=== PATIENT | female | born 1925 | race Caucasian/White ===

== ENCOUNTER 2016-06-07 10:00 | Inpatient (IN) | payer MEDICARE, BC ==
[~2016-06-07] VITALS: Ht 157.5 cm; Wt 53.1 kg
--- NOTE | 2016-06-07 10:00 | NUR ---
bib from [facility] due to low bs- bs upon arrival is 35. Patient is awake and alert. Sating 89 % on room air. Skin is warm to touch and non diaphoretic. Afebrile. Gowned pt and placed on tele monitor. Iv inserted to rac 20. MD Draper at bedside.
[2016-06-07] MEDS ORDERED: DEXTROSE 50%-WATER 50 ML DISP.SYRIN ONE ×2 (10:03→16:52)
[2016-06-07] MEDS ORDERED: DEXTROSE 50%-WATER 50 ML DISP.SYRIN IVP ONE (10:30)
[2016-06-07] MEDS ORDERED: IPRA0.2S49 NEB ×2 (10:42)
[2016-06-07] MEDS ORDERED: DOCU-25 PO (10:42)
[2016-06-07] MEDS ORDERED: MIRT7.5T10 PO (10:42)
[2016-06-07] MEDS ORDERED: DILT120C2 PO (10:42)
[2016-06-07] MEDS ORDERED: ALLO100T PO (10:42)
[2016-06-07] MEDS ORDERED: DIGO125T PO (10:42)
[2016-06-07] MEDS ORDERED: MEGE400O PO (10:42)
[2016-06-07] MEDS ORDERED: LIOT5TAB8 PO (10:42)
[2016-06-07] MEDS ORDERED: LEVO75TA7 PO (10:42)
[2016-06-07] MEDS ORDERED: PRED10TA PO (10:42)
[2016-06-07] MEDS ORDERED: FLUT1DIS INH (10:42)
[2016-06-07] MEDS ORDERED: SACC250C6 PO (10:42)
[2016-06-07] MEDS ORDERED: METF500T4 PO (10:42)
[2016-06-07] MEDS ORDERED: INSU3INS6 SQ (10:42)
[2016-06-07] MEDS ORDERED: SENN8.6T6 PO (10:42)
[2016-06-07] MEDS ORDERED: EPOE200011 SQ (10:42)
[2016-06-07] MEDS ORDERED: ATOR10TA PO (10:42)
[2016-06-07] MEDS ORDERED: ALBU1.257 NEB (10:42)
[2016-06-07] MEDS ORDERED: POLY119P2 PO (10:42)
[2016-06-07] MEDS ORDERED: CLON0.1T PO (10:42)
[2016-06-07] MEDS ORDERED: INSU100I14 SQ (10:42)
[2016-06-07] MEDS ORDERED: LOSA50TA21 PO (10:42)
[2016-06-07] MEDS ORDERED: TIOT18CA3 INH (10:42)
[2016-06-07] MEDS ORDERED: METO-302 PO (10:42)
[2016-06-07 10:45] LABS: BASOPHILS # (AUTO) 0.1 /CMM (0.0-0.2); BASOPHILS % (AUTO) 0.4 % (0.0-2.0); EOSINOPHILS # (AUTO) 0.1 /CMM (0.0-0.7); EOSINOPHILS % (AUTO) 0.4 % (0.0-6.0); HEMATOCRIT 34 % (33-45); HEMOGLOBIN 11.3 g/dL (11.5-14.8); LYMPHOCYTES % (AUTO) 12.3 % (20.0-44.0); MEAN CORPUSCULAR HEMOGLOBIN 33 PG (26.0-33.0); MEAN CORPUSCULAR HGB CONC 33 g/dl (31.0-36.0); MEAN CORPUSCULAR VOLUME 100 fL (82-100); MONOCYTES # (AUTO) 0.6 /CMM (0.1-1.30); MONOCYTES % (AUTO) 3.8 % (2.0-12.0); NEUTROPHILS # (AUTO) 13.6 /CMM (1.8-8.9); NEUTROPHILS % (AUTO) 83.1 % (43.0-81.0); PLATELET COUNT (AUTO) 322 /CMM (150-450); RDW COEFFICIENT OF VARIATION 17.6 (11.5-15.0); RED BLOOD CELL COUNT(AUTO) 3.41 MIL/uL (4.0-5.2); WHITE BLOOD COUNT (AUTO) 16.4 K/uL (4.3-11.0)
--- NOTE | 2016-06-07 10:55 | NUR ---
xray tect at bedside
[2016-06-07 10:56] LABS: CALCIUM, SERUM 8.6 mg/dL (8.5-10.1); CARBON DIOXIDE 21 mmol/L (21-32); CHLORIDE 110 mmol/L (98-107); CREATININE 1.2 mg/dL (0.6-1.3); GLUCOSE 174 mg/dL (74-106); POTASSIUM 4.6 mmol/L (3.5-5.1); SODIUM SERUM 140 mmol/L (136-145); UREA NITROGEN, BLOOD 24 mg/dL (7-18)
[2016-06-07 11:00] LABS: INR 0.99 (0.87-1.13); PROTHROMBIN TIME 10.6 SECS (9.5-12.7)
[2016-06-07 11:02] LABS: ALANINE AMINOTRANSFERASE 14 U/L (12-78); ALBUMIN 2.7 g/dL (3.4-5.0); ALKALINE PHOSPHATASE 58 U/L (46-116); ASPARTATE AMINOTRANSFERASE 13 U/L (15-37); BILIRUBIN,DIRECT 0.1 mg/dL (0.0-0.2); BILIRUBIN,TOTAL 0.3 mg/dL (0.2-1.0); TOTAL PROTEIN, SERUM 6.4 g/dL (6.4-8.2)
[2016-06-07 11:04] LABS: TROPONIN I 0.137 ng/mL (0.00-0.056)
[2016-06-07 11:19] LABS: LACTIC ACID 3.4 mmol/L (0.4-2.0)
--- NOTE | 2016-06-07 11:23 | NUR ---
urine sample sent to lab
[2016-06-07] MEDS ORDERED: CEFTRIAXONE 1GM BAG (ER ONLY) 50 ML IV ONE (11:24)
[2016-06-07] MEDS ORDERED: IV SET PRIMARY PUMP SET 1 EA INFUS.SET MC ONE ×2 (11:24→11:38)
--- NOTE | 2016-06-07 11:24 | NUR ---
spoke with dr Callaway's office and left callback number; he will call back
[2016-06-07 11:27] LABS: APPEARANCE,URINE Clear (CLEAR); BILIRUBIN,URINE Negative (NEGATIVE); BLOOD, URINE Trace-lysed Ery/uL (NEGATIVE); COLOR,URINE Yellow (YELLOW); KETONES,URINE Negative (NEGATIVE); LEUKOCYTE ESTERASE ,URINE Trace (NEGATIVE); NITRITE, URINE Negative (NEGATIVE); PH,URINE 5.5 (5.0-8.0); PROTEIN,URINE 30 mg/dl (NEGATIVE); UROBILINOGEN,URINE 0.2 EU/dL (0.2)
[2016-06-07 11:29] LABS: UGLUCOSE 100 MG/DL mg/dL (NEGATIVE)
[2016-06-07] MEDS ORDERED: IV NS 0.9% 1,000 ML BAG IV ONE (11:30)
[2016-06-07] MEDS ORDERED: CEFTRIAXONE 1GM BAG (ER ONLY) 1 GM/50 ML PIGGYBACK IV ONE (11:30)
[2016-06-07 11:33] LABS: RBC,URINE 0-2 /HPF (0-2)
[2016-06-07 11:34] LABS: ADD URINE CULTURE NO; BACTERIA,URINE 1+ /HPF (None Seen)
[2016-06-07 11:35] LABS: SQUAMOUS EPITHELIAL CELL,UR Rare /HPF (None Seen)
[2016-06-07] MEDS ORDERED: IV NS 0.9% 2,000 ML ONE (11:37)
[2016-06-07] MEDS ORDERED: SECONDARY IV SET 1 EA INFUS.SET MC ONE (11:38)
--- NOTE | 2016-06-07 11:44 | NUR ---
PAGED DR CHOPRA.
[2016-06-07] MEDS ORDERED: AZITHROMYCIN 500 MG in IV D5W 250 ML IV ONE (12:00)
--- NOTE | 2016-06-07 12:43 | NUR ---
PATIENT TRASNPORTED TO TEEL1. VSS
--- NOTE | 2016-06-07 12:50 | NUR ---
RN NOTES ADMITTED A 89Y/O F FROM ER WITH DX OF PNA. TRANSPORTED VIA STRECHER ACCOMPANIED BY REGULATORY AFFAIRS ANALYST AND RN. DAUGHTER AT BEDSIDE. PT IS AWAKE ALERT ORIENTED TO NAME AND IMMEDIATE SURROUNDINGS WITH FORGETFULNESS. VS TAKEN AND RECORDED. TELE BOX ATTACHED NOTED NSR, BODY CHECK DONE NOTED MULTIPLE SKIN ISSUES. PT HAS MULTIPLE DISCOLORATION AND SKIN TEAR ALL OVER HER BODY. PICTURES TAKEN AND FILED. PT VERY SENSITIVE TO TACTILE STIMULI. BINDERY MANAGER WILL BE CONSULTED. ORIENTED PT TO UNIT AND CALL LIGHT USE, SAFETY MAINTAINED. CALL LIGHT WITHIN REACH, WILL CONT TO MONITOR
[2016-06-07 13:00] VITALS: BP 145/86
[2016-06-07] MEDS ORDERED: IPRATROPIUM NEB FS 0.5 MG/2.5 ML AMPUL.NEB NEB PRN (13:00)
[2016-06-07] MEDS ORDERED: DOCUSATE SODIUM 100 MG CAPSULE PO PRN (13:00)
[2016-06-07] MEDS ORDERED: TIOTROPIUM BROMIDE 6 CAP/BOX CAP.W.DEV IH SCH (13:00)
--- NOTE | 2016-06-07 13:05 | NUR ---
RN NOTES DR CHOPRA AT BESIDE, PT WAS SEEN AND EVALUATED. SPOKE WITH DAUGHTER REGARDING PLAN OF CARE
[2016-06-07] MEDS ORDERED: HYDROCODONE/APAP 5/325MG 1 EACH TABLET PO PRN (13:30)
[2016-06-07] MEDS ORDERED: Z GUARD REMEDY 2 OZ OINT TP PRN (13:30)
[2016-06-07] MEDS ORDERED: POLYETHYLENE GLYCOL 3350 17 GM POWD.PACK PO PRN (13:30)
[2016-06-07] MEDS ORDERED: ACETAMINOPHEN 325 MG TABLET PO PRN (13:30)
[2016-06-07] MEDS ORDERED: ONDANSETRON HCL/PF 4 MG/2 ML VIAL IVP PRN (13:30)
[2016-06-07] MEDS ORDERED: MAG HYDROX/AL HYDROX/SIMETH 30 ML UDC PO PRN (13:30)
[2016-06-07] MEDS: ALLOPURINOL 100 MG TABLET PO SCH (15:15)
[2016-06-07] MEDS: IV NS 0.9% 1,000 ML IV PRN (15:16)
[2016-06-07] MEDS: IPRATROPIUM NEB FS 0.5 MG/2.5 ML AMPUL.NEB NEB SCH ×2 (15:49→17:00)
[2016-06-07] MEDS: ALBUTEROL HALF STRENGTH 1.25 MG/3 ML VIAL.NEB NEB SCH ×2 (15:49→17:00)
[2016-06-07 16:00] VITALS: BP 142/108
--- NOTE | 2016-06-07 16:03 | NUR ---
RN NOTES PT AFIB UNCONTROLLED HR 139 BP 140/108 DENIES PAIN. LABOR BREATHING, ON 3L NC 89% O2SATS. CALL DR CHOPRA AND NOTIFIED OF PTS CONDITION ALL LABS WERE REPORTED, EKG DONE, MD INFORMED OF RESULTS. WILL F/U WITH PTS HEART MEDICATIONS FROM PHARMACY, SPOKE WITH
[2016-06-07] MEDS: DILTIAZEM HCL CD 120 MG PO SCH (16:05)
[2016-06-07] MEDS: DIGOXIN 0.125 MG TABLET PO SCH (16:16)
[2016-06-07] MEDS: LOSARTAN POTASSIUM 50 MG TABLET PO SCH (16:19)
[2016-06-07] MEDS: METOPROLOL SUCCINATE 25 MG TAB.SR.24H PO SCH (16:20)
[2016-06-07] MEDS: CLONIDINE HCL 0.1 MG TABLET PO PRN ×2 (16:20→16:21)
[2016-06-07] MEDS ORDERED: METOPROLOL SUCCINATE 25 MG TAB.SR.24H PO ONE (16:30)
[2016-06-07] MEDS ORDERED: LOSARTAN POTASSIUM 50 MG TABLET PO ONE (16:30)
[2016-06-07] MEDS ORDERED: predniSONE 10 MG TABLET PO ONE (16:30)
[2016-06-07] MEDS: LACTOBACILLUS RHAMNOSUS GG 1 EACH CAP.SPRINK PO SCH (16:39)
[2016-06-07] MEDS: PANTOPRAZOLE 40 MG TABLET.DR PO SCH (16:46)
[2016-06-07] MEDS: FLUTICASONE/SALMETEROL DISKUS IH SCH (17:00)
[2016-06-07] MEDS ORDERED: SENNOSIDES 8.6 MG TABLET PO SCH (17:00)
[2016-06-07] MEDS ORDERED: METFORMIN 500 MG TABLET PO SCH (17:00)
[2016-06-07] MEDS: MEGESTROL ACETATE 40 MG TABLET PO SCH (17:03)
--- NOTE | 2016-06-07 17:11 | NUR ---
RN NOTES PT SLURRED SPEECH, PALE, MILD LETHARGY NOTED. BS LOW ON METER. 50% DEXTROSE 25G GIVEN IV. CHARGE NURSE FU TO NOTIFIED MD. PT A/O X4 , BS 180 POST ADMINISTRATION. WILL CONTINUE TO MONITOR.
[2016-06-07] MEDS ORDERED: DEXTROSE 50%-WATER 50 ML DISP.SYRIN IV PRN (17:30)
[2016-06-07] MEDS ORDERED: INSULIN REGULAR, HUMAN 100 UNIT/ML 3 ML VIAL SQ PRN (17:30)
[2016-06-07] MEDS: BLOOD SUGAR DIAGNOSTIC 1 EACH STRIP IN SCH ×2 (18:38→21:19)
[2016-06-07] MEDS ORDERED: LIOTHYRONINE SODIUM (5 MCG/TA 5 MCG TABLET PO SCH (19:18)
[2016-06-07 20:00] VITALS: BP 140/98
--- NOTE | 2016-06-07 21:05 | NUR ---
RN NOTE RECEIVED REPORT. PT AAOX1-2, PERIODS OF FORGETFULNESS. ON NC @ 4L. NO S/S OF RESPIRATORY DISTRESS. DENIES SOB/DIZZINESS/CP. TELE SHOWS UNCONTROLLED AFIB IN 100'S - MD AWARE. LAND HAND IV TOLERATING FLUIDS WELL. WILL MONITOR ACCUCHECK. CALL LIGHT IN REACH, SAFETY AND COMFORT MEASURE RENDERDED. WILL CONT TO MONITOR.
[2016-06-07] MEDS: MIRTAZAPINE 15 MG TABLET PO SCH (21:20)
[2016-06-07] MEDS: ATORVASTATIN 10 MG TABLET PO SCH (21:20)
[2016-06-07 22:00] VITALS: BP 140/98
[2016-06-07] MEDS ORDERED: ZOLPIDEM TARTRATE 5 MG TABLET PO PRN (22:00)
[2016-06-07] MEDS ORDERED: MAGNESIUM HYDROXIDE 30 ML UDC PO PRN (22:00)
[2016-06-07] MEDS ORDERED: INSULIN DETEMIR 100 UNIT/ML CARTRIDGE SQ SCH (22:00)
[2016-06-08] VITALS: BP 142/78
--- NOTE | 2016-06-08 02:30 | NUR ---
RN NOTE MD MADE AWARE OF PT PULSE RATE - AFIB 110-150'S. BP 148/87. NO C/O CP/DIZZINESS, BUT SOB NOTED. ONE TIME LOPRESSOR 50 MG PO WILL BE GIVEN. WILL CONT TO MONITOR.
[2016-06-08] MEDS ORDERED: METOPROLOL TARTRATE 50 MG TABLET PO STA (02:35)
[2016-06-08] MEDS ORDERED: BENZONATATE 100 MG CAPSULE PO ONE (02:38)
[2016-06-08] MEDS ORDERED: METOPROLOL TARTRATE 50 MG TABLET ONE (02:38)
[2016-06-08] MEDS ORDERED: BENZONATATE 100 MG CAPSULE PO PRN (03:00)
[2016-06-08] MEDS: IV NS 0.9% 1,000 ML IV PRN (03:47)
[2016-06-08 04:00] VITALS: BP 139/64
--- NOTE | 2016-06-08 04:00 | NUR ---
RN NOTE PT AAOX2, WITH PERIODS OF CONFUSION. TELE READS AFIB 90-100, PRN METOPROLOL GIVEN AT 0230 EFFECTIVE. PT DENIES CP/DIZZINESS/SOB, ON NC @ 3L SATTING WELL. VSS, NO DISTRESS AT THIS TIME. CALL LIGHT IN REACH, SAFETY AND COMFORT MEASURES RENDERED. WILL F/U WITH DAY SHIFT FOR ECHO.
[2016-06-08] MEDS: BLOOD SUGAR DIAGNOSTIC 1 EACH STRIP IN SCH ×4 (06:37→22:01)
[2016-06-08 07:27] LABS: BASOPHILS % (AUTO) 0.2 % (0.0-2.0); EOSINOPHILS % (AUTO) 0.1 % (0.0-6.0); HEMATOCRIT 28 % (33-45); HEMOGLOBIN 9.1 g/dL (11.5-14.8); LYMPHOCYTES % (AUTO) 5.3 % (20.0-44.0); MEAN CORPUSCULAR HEMOGLOBIN 32 PG (26.0-33.0); MEAN CORPUSCULAR HGB CONC 33 g/dl (31.0-36.0); MEAN CORPUSCULAR VOLUME 98 fL (82-100); MONOCYTES # (AUTO) 0.2 /CMM (0.1-1.30); MONOCYTES % (AUTO) 1.3 % (2.0-12.0); NEUTROPHILS # (AUTO) 16.9 /CMM (1.8-8.9); NEUTROPHILS % (AUTO) 93.1 % (43.0-81.0); PLATELET COUNT (AUTO) 223 /CMM (150-450); RDW COEFFICIENT OF VARIATION 18.3 (11.5-15.0); RED BLOOD CELL COUNT(AUTO) 2.82 MIL/uL (4.0-5.2); WHITE BLOOD COUNT (AUTO) 18.1 K/uL (4.3-11.0)
[2016-06-08 07:56] LABS: BILIRUBIN,TOTAL 0.2 mg/dL (0.2-1.0); CALCIUM, SERUM 7.6 mg/dL (8.5-10.1); CREATININE 0.9 mg/dL (0.6-1.3); MAGNESIUM 1.6 mg/dL (1.8-2.4); PHOSPHORUS 3.2 mg/dL (2.5-4.9); POTASSIUM 4.5 mmol/L (3.5-5.1); TOTAL PROTEIN, SERUM 5.1 g/dL (6.4-8.2)
[2016-06-08] MEDS: LEVOTHYROXINE SODIUM 75 MCG TABLET PO SCH (07:59)
[2016-06-08 08:00] VITALS: BP 103/64
[2016-06-08] MEDS: PANTOPRAZOLE 40 MG TABLET.DR PO SCH (08:00)
--- NOTE | 2016-06-08 08:19 | NUR ---
RN NOTES 0700 PT A/O X3 DENIES PAIN AT THIS TIME. ON 4L NC O2SATS 96% AFIB 90 ON MONITOR. AFEBRILE. ATTEMPS TO CLEAR SECRETION. SAFETY MEASURES IMPLEMENTED. WILL CONTINUE TO MONITOR CARE.
[2016-06-08] MEDS: ALBUTEROL HALF STRENGTH 1.25 MG/3 ML VIAL.NEB NEB SCH ×3 (08:55→17:04)
[2016-06-08] MEDS: IPRATROPIUM NEB FS 0.5 MG/2.5 ML AMPUL.NEB NEB SCH ×3 (08:55→17:04)
[2016-06-08] MEDS: Z GUARD REMEDY 2 OZ OINT TP SCH (09:00)
[2016-06-08] MEDS ORDERED: DILTIAZEM HCL CD 120 MG PO SCH (09:00)
--- NOTE | 2016-06-08 09:00 | NUR ---
SKILLED NURSING SENT MEDICATION LIST AND COPY OF POLST. PUT IN CHART. SKILLED NURSING INFORMATION: [facility], [address], . MAY SPEAK TO [facility] AND PATIENT IS LISTED UNDER NAME NILTON SOON ROOM 101-A. WILL ENDORSE TO NEXT NURSE.
--- NOTE | 2016-06-08 09:00 | NUR ---
RN AM NOTES PATIENT RECEIVED IN STABLE CONDITION, A/O X1, ASKING WHERE SHE IS AND WHERE HER DAUGHTER IS. INFORMED PATIENT THAT HER DAUGHTER VISITED YESTERDAY AND THAT SHE KNOWS SHE IS IN THE HOSPITAL. REORIENTED PATIENT TO HOSPITAL. PATIENT KEEPS STATING "I WANT TO GO HOME," BUT THEN REALIZES SHE IS IN THE HOSPITAL AND CALMS DOWN. CURRENTLY RESTING IN BED CALMLY, EATING BREAKFAST. WILL CONTINUE TO MONITOR
[2016-06-08] MEDS: LACTOBACILLUS RHAMNOSUS GG 1 EACH CAP.SPRINK PO SCH ×2 (10:13→17:23)
[2016-06-08] MEDS: MEGESTROL ACETATE 40 MG TABLET PO SCH ×2 (10:14→17:11)
[2016-06-08] MEDS: ALLOPURINOL 100 MG TABLET PO SCH (10:18)
[2016-06-08] MEDS: DILTIAZEM HCL CD 120 MG PO SCH (10:18)
[2016-06-08] MEDS: METOPROLOL SUCCINATE 25 MG TAB.SR.24H PO SCH (10:19)
[2016-06-08] MEDS: DIGOXIN 0.125 MG TABLET PO SCH (10:19)
[2016-06-08] MEDS: LOSARTAN POTASSIUM 50 MG TABLET PO SCH (10:20)
--- NOTE | 2016-06-08 11:00 | NUR ---
WOUND CARE CONSULT: PATIENT SEEN AND SKIN ASSESSMENT DONE. PATIENT ALERT, INCONTINENT, ROCÍO 13, NURSING STAFF ORDERED AMANDA ISOFLEX ALEX BED AND WILL BE PLACED WHEN AVAILABLE IN THE UNIT. SEE TODAY'S SKIN ASSESSMENT IN PCS ALONG WITH RECOMMENDATIONS DISCUSSED WITH NURSING STAFF INCLUDING MOISTURE PROTECTION AND PRESSURE PREVENTION MEASURES ORDERED. MD IN AGREEMENT WITH PLAN OF CARE. Addendum: 06/08/16 at 1103 by ESCOBAR SAINZ WNDNU Amended: Links added.
[2016-06-08] MEDS: LIOTHYRONINE SODIUM (5 MCG/TA 5 MCG TABLET PO SCH (11:43)
[2016-06-08] MEDS: SENNOSIDES 8.6 MG TABLET PO SCH ×2 (11:44→17:11)
[2016-06-08] MEDS: predniSONE 10 MG TABLET PO SCH (11:44)
[2016-06-08] MEDS: FLUTICASONE/SALMETEROL DISKUS IH SCH ×2 (11:44→17:10)
[2016-06-08] MEDS ORDERED: CEFTRIAXONE 1 G in IV D5W 50 ML IV SCH (12:00)
[2016-06-08] MEDS: HYDROGEL DRESSING 90 GM TUBE TP SCH (12:44)
[2016-06-08] MEDS: AZITHROMYCIN 500 MG in IV D5W 250 ML IV SCH (12:44)
[2016-06-08] MEDS ORDERED: SECONDARY IV SET 1 EA INFUS.SET MC ONE ×2 (12:46→14:35)
--- NOTE | 2016-06-08 12:59 | NUR ---
BLOOD SUGAR TAKEN IMMEDIATE POST PARANDIAL. NO COVERAGE NEEDED AT THIS TIME. WILL CONTINUE TO MONITOR.
--- NOTE | 2016-06-08 14:03 | NUR ---
SWALLOW EVALUATION COMPLETE, PATIENT ABLE TO TOLERATE WHOLE FOODS WITH NO PROBLEMS, MG TO BE REPLACED, WOUND CONSULT WITH LORI BERNARDCORPORATE MEETING PLANNER NURSE PENDING, RENDERED WOULD CARE THIS AM. WILL ENDORSE TO ONCOMING NURSE.
--- NOTE | 2016-06-08 14:17 | NUR ---
Social service consult requested by [place] for [facility]. Per H&P report by Dr. Chu, pt is a 89-year-old female who presented to the emergency room from assisted living facility for evaluation of altered mentation. According to patient's daughter who is at bedside found her mother very lethargic on day of admission. Patient also reports for bilateral lower extremity wounds. They have been taking care of by a complaint specialist at [facility]. Pt. is A&O x 2 with bouts of confusion. Pt. resides at [facility], an assisted living located at [address] [place] [address] . Pt. has a portable Oxygen tank and home health services. consulted with nurse case manager Michael who informed SW he spoke to pt's daughter Jerica and confirmed that pt. will return back to her assisted living at the [facility] upon discharge. Pt's daughter will transport pt. back to her facility upon discharge.
[2016-06-08] MEDS ORDERED: IV NS 0.9% 1,000 ML ONE (14:35)
[2016-06-08] MEDS: NEOMY SULF/BACITRAC ZN/POLY 15 GM TUBE TP SCH (14:45)
[2016-06-08] MEDS: Magnesium 1GM/D5W 100ML PREMIX 100 ML IV SCH (14:45)
--- NOTE | 2016-06-08 14:47 | NUR ---
STARTED NEW BAG OF NS FOR HYDRATION. SCANNED TWICE, MANUALLY ENTERED, BUT COMPUTER DOES NOT RECOGNIZE.
--- NOTE | 2016-06-08 15:08 | NUR ---
PATIENT'S PIV DISLODGED. ATTEMPTED TO REINSERT UNSUCCESSFULLY. SKIN WITH MULTIPLE BRUISES AND SKIN TEARS. WOUND CARE RENDERED, PAIN MEDS GIVEN ORDERED. OKAY FOR MIDLINE INSERTION FOR MEDS AND BLOOD DRAWS. WILL CONTINUE TO MONITOR.
[2016-06-08 16:00] VITALS: BP 98/74
--- NOTE | 2016-06-08 17:40 | NUR ---
RN NOTE LEFT ARM INFILTRATED FROM PREVIOUS IV SITE. FOLLOWED UP WITH SUPERVISOR RIDES FOR MIDLINE INSERTION STILL WAITING FOR PLACEMENT.
[2016-06-08] MEDS ORDERED: IV SET PRIMARY PUMP SET 1 EA INFUS.SET MC ONE (18:47)
[2016-06-08] MEDS: MEROPENEM 500 MG in IV NS 0.9% 50 ML IV SCH (18:47)
--- NOTE | 2016-06-08 19:02 | NUR ---
RN NOTES PT MID LINE IV CATH RT UPPER ARM DRY INTACT. ANTIBIOTICS AND MAG INFUSING ORDERED. NO CHANGE IN CONDITION. ON 3L NC. NO SOB REPOTED. BREATH SOUNDS DIMINISHED. DENIES PAIN AT THIS TIME. SAFETY MEASURES IMPLEMENTED. CALL LIGHT IN REACH. WILL ENDORSED PT CARE TO NEXT SHIFT.
[2016-06-08 20:00] VITALS: BP 108/64
--- NOTE | 2016-06-08 20:00 | NUR ---
DIRECTOR OF DIVERSITY AND INCLUSION RECEIVED PT IN BED SUPINE. A/O X 1-2, CONFUSED AND FORGETFUL. NO SOB, NO DISTRESS OR DISCOMFORT NOTED. DENIES PAIN. ON TELE A FIB UNCONTROLLED HR 100. MAG IS INFUSING AT 100 ML/HR, NO S/S OF INFILTRATION NOTED AT CARLOS MIDLINE # 20 G. PT HAS LEFT ARM EDEMA DUE TO IV INFILTRATION IN DAY SHIFT. KEPT THE ARM ELEVATED. PT HAS MULTIPLE SKIN TEAR AND BRUISES, HANDLED HER GENTLY. INCONTINENCE CARE GIVEN. Z GUARD APPLIED. REPOSITION HER FOR SKIN MANAGEMENT. SIDE RAILS UP X 2 AND CALL LIGHT WITHIN REACH. VSS. CONTINUE TO MONITOR HER.
[2016-06-08 20:56] VITALS: BP 154/89
[2016-06-08] MEDS ORDERED: MEROPENEM 500 MG in IV NS 0.9% 50 ML IV SCH (21:00)
[2016-06-08] MEDS: ATORVASTATIN 10 MG TABLET PO SCH (21:36)
[2016-06-08] MEDS: MIRTAZAPINE 15 MG TABLET PO SCH (21:37)
[2016-06-09] VITALS (8 sets, daily range): BP systolic 101–177; BP diastolic 55–86
[2016-06-09] MEDS: MEROPENEM 500 MG in IV NS 0.9% 50 ML IV SCH ×2 (04:57→16:23)
--- NOTE | 2016-06-09 05:00 | NUR ---
BI DATA MODELER PT IN BED AWAKE. BED BATH GIVEN. ALSO WOUND TX'S DONE ORDERED. IVF INFUSING WELL, NO S/S OF INFILTRATION NOTED.
[2016-06-09] MEDS: BLOOD SUGAR DIAGNOSTIC 1 EACH STRIP IN SCH ×3 (05:58→16:32)
--- NOTE | 2016-06-09 06:37 | NUR ---
DIRECTOR OF FIELD SERVICE NOTE PT IN BED ASLEEP, AROUSABLE. NO DISTRESS OR DISCOMFORT NOTED. DENIES PAIN. IVF INFUSING WELL, NO S/S OF INFILTRATION NOTED. ON TELE A FIB CONTROLLED WITH HR 80. SIDE RAILS UP X 2 AND CALL LIGHT WITHIN REACH. WILL ENDORSE TO DAY SHIFT NURSE FOR CONTINUE TO CARE.
--- NOTE | 2016-06-09 07:20 | NUR ---
SUTURE WINDER HAND INITIAL NOTES: Rec'd pt awake on bed, not in any distress, denies chest pain or any discomfort, A&O x1-2 with periods of confusion. Pt on O2 at 3lpm per NC, no SOB, saturating at 97%. On telemonitoring, atrial fib controlled/uncontrolled, HR at 106 bpm. Pt has CARLOS midline, patent, clean, dry, intact w/ NS at 100 cc/hr infusing well, no signs of infection/ infiltration noted. Call light placed within reached. Instructed to press call light if needs assistance, verbalized understanding. Will turn and reposition, offload heels as per protocol. Bed kept low and in locked position. Will continue to monitor.
--- NOTE | 2016-06-09 08:00 | NUR ---
CLOSET BUILDER NOTES: CARLOS midline checked, infiltrated, catheter out. Notified nursing finishing supervisor c/o CIRO Addison for reinsertion.
[2016-06-09] MEDS: IV NS 0.9% 1,000 ML IV PRN (08:43)
[2016-06-09] MEDS: LEVOTHYROXINE SODIUM 75 MCG TABLET PO SCH (08:47)
[2016-06-09] MEDS: predniSONE 10 MG TABLET PO SCH (08:48)
[2016-06-09] MEDS: PANTOPRAZOLE 40 MG TABLET.DR PO SCH (08:48)
[2016-06-09] MEDS: LACTOBACILLUS RHAMNOSUS GG 1 EACH CAP.SPRINK PO SCH ×2 (08:48→16:23)
[2016-06-09] MEDS: MEGESTROL ACETATE 40 MG TABLET PO SCH ×2 (08:48→16:23)
[2016-06-09] MEDS: LOSARTAN POTASSIUM 50 MG TABLET PO SCH (08:49)
[2016-06-09] MEDS: SENNOSIDES 8.6 MG TABLET PO SCH ×2 (08:49→16:23)
[2016-06-09] MEDS: METOPROLOL SUCCINATE 25 MG TAB.SR.24H PO SCH (08:49)
[2016-06-09] MEDS: ALLOPURINOL 100 MG TABLET PO SCH (08:50)
[2016-06-09] MEDS: DILTIAZEM HCL CD 120 MG PO SCH (08:50)
[2016-06-09] MEDS: DIGOXIN 0.125 MG TABLET PO SCH (08:50)
[2016-06-09] MEDS: LIOTHYRONINE SODIUM (5 MCG/TA 5 MCG TABLET PO SCH (08:50)
[2016-06-09] MEDS: NEOMY SULF/BACITRAC ZN/POLY 15 GM TUBE TP SCH (08:51)
[2016-06-09] MEDS: Z GUARD REMEDY 2 OZ OINT TP SCH (08:52)
[2016-06-09] MEDS: HYDROGEL DRESSING 90 GM TUBE TP SCH (08:52)
[2016-06-09] MEDS: ALBUTEROL HALF STRENGTH 1.25 MG/3 ML VIAL.NEB NEB SCH ×3 (09:00→17:01)
[2016-06-09] MEDS: IPRATROPIUM NEB FS 0.5 MG/2.5 ML AMPUL.NEB NEB SCH ×3 (09:00→17:01)
[2016-06-09 10:18] LABS: EOSINOPHILS % (AUTO) 0.3 % (0.0-6.0); HEMATOCRIT 29 % (33-45); HEMOGLOBIN 9.5 g/dL (11.5-14.8); LYMPHOCYTES % (AUTO) 6.9 % (20.0-44.0); MEAN CORPUSCULAR HEMOGLOBIN 33 PG (26.0-33.0); MEAN CORPUSCULAR HGB CONC 33 g/dl (31.0-36.0); MEAN CORPUSCULAR VOLUME 100 fL (82-100); MONOCYTES # (AUTO) 0.5 /CMM (0.1-1.30); MONOCYTES % (AUTO) 3.4 % (2.0-12.0); NEUTROPHILS # (AUTO) 12.9 /CMM (1.8-8.9); NEUTROPHILS % (AUTO) 89.4 % (43.0-81.0); PLATELET COUNT (AUTO) 289 /CMM (150-450); RDW COEFFICIENT OF VARIATION 18.3 (11.5-15.0); RED BLOOD CELL COUNT(AUTO) 2.89 MIL/uL (4.0-5.2); WHITE BLOOD COUNT (AUTO) 14.4 K/uL (4.3-11.0)
[2016-06-09 10:29] LABS: CALCIUM, SERUM 8.1 mg/dL (8.5-10.1); CREATININE 1.2 mg/dL (0.6-1.3); MAGNESIUM 2.2 mg/dL (1.8-2.4); POTASSIUM 4.1 mmol/L (3.5-5.1)
[2016-06-09] MEDS: FLUTICASONE/SALMETEROL DISKUS IH SCH ×2 (10:40→16:24)
[2016-06-09] MEDS: EPOETIN ALFA (20,000 UNIT) 20,000 UNIT/ML VIAL SQ SCH (11:55)
--- NOTE | 2016-06-09 12:00 | NUR ---
HUMAN RESOURCES OPERATIONS MANAGER NOTES: Followed up w/ CIRO Addison re: reinsertion of midline. Nursing lathing supervisor made aware.
--- NOTE | 2016-06-09 14:00 | NUR ---
EAR FLAP BINDER NOTES: Dr. Bishop made aware c/o CIRO Addison that pt cannot tolerate straight catheterization procedure for urine culture specimen. Pt having SOB.
--- NOTE | 2016-06-09 15:30 | NUR ---
TECH INTERN NOTES: CARLOS Midline G18 reinserted c/o Harley. Pt tolerated well the procedure.
[2016-06-09] MEDS ORDERED: SECONDARY IV SET 1 EA INFUS.SET MC ONE (15:33)
[2016-06-09] MEDS: AZITHROMYCIN 500 MG in IV D5W 250 ML IV SCH (15:34)
--- NOTE | 2016-06-09 17:00 | NUR ---
HELPER STEEL FABRICATION NOTES: Informed Dr. Bishop re: blood sugar of 323 mg/dL, with orders made and carried out. Instructed family not to give pt any outside food. Verbalized understanding.
[2016-06-09] MEDS ORDERED: DEXTROSE 50%-WATER 50 ML DISP.SYRIN IV PRN (17:30)
[2016-06-09] MEDS: BLOOD SUGAR DIAGNOSTIC 1 EACH STRIP VI SCH ×2 (17:54→21:11)
[2016-06-09] MEDS: *INSULIN REGULAR(HUMULIN R)HUM 100 UNIT/ML VIAL SQ PRN ×2 (18:39→21:05)
--- NOTE | 2016-06-09 18:39 | NUR ---
SPRINKLER INSTALLER CLOSING NOTES: No acute changes noted w/in shift. Pt not in any distress, A&O x3. Pt on O2 at 3lpm per NC, no SOB, saturating at 97%. On telemonitoring, atrial fib with HR at 96 bpm. Pt has new CARLOS midline inserted, patent, clean, dry, intact w/ NS at 100 cc/hr infusing well, no signs of infection/ infiltration noted. Call light placed within reached. Wound care done. Turned and repositioned, offloaded heels done. Bed kept low and in locked position. Will endorse to PM RN for ECHO.
--- NOTE | 2016-06-09 20:00 | NUR ---
SHEET METAL SUPERINTENDENT NOTES RECEIVED PTS ON BED AWAKE ALERT AND VERBALLY RESPONSIVE WITH PERIOD OF CONFUSION,ON TELE AFIB ON THE MONITOR , V/S STABLE AFEBRILE , ALL DUE MEDS GIVEN ORDERED ALL NEEDS ATTENDED TOO .CALL LIGHT WITH REACH ,KEPT PTS CLEAN DRY AND COMFORTABLE. WILL CONTINUE TO MONITOR PTS.
[2016-06-09] MEDS: ATORVASTATIN 10 MG TABLET PO SCH (21:06)
[2016-06-09] MEDS: MIRTAZAPINE 15 MG TABLET PO SCH (21:07)
[2016-06-10] VITALS: BP 129/63
[2016-06-10] MEDS: IV NS 0.9% 1,000 ML IV PRN ×2 (03:08→14:56)
[2016-06-10 04:00] VITALS: BP_SYST 140; BP_DIAS 97; BP_DIAS 99
[2016-06-10] MEDS: MEROPENEM 500 MG in IV NS 0.9% 50 ML IV SCH ×2 (05:34→17:11)
[2016-06-10] MEDS: BLOOD SUGAR DIAGNOSTIC 1 EACH STRIP VI SCH ×4 (06:55→21:50)
[2016-06-10] MEDS: INSULIN REGULAR, HUMAN 100 UNIT/ML 3 ML VIAL SQ PRN ×3 (06:56→18:44)
--- NOTE | 2016-06-10 07:20 | NUR ---
ETHOLOGIST INITIAL NOTES: Rec'd pt asleep on bed, easily arousable, A&Ox3, not in any distress. On O2 at 3lpm/NC, no SOB noted. On telemonitoring, A.fib w/ HR 105 bpm. Pt has CARLOS G18 midline patent and intact, no signs of infection/ infiltration noted with IVF of NS 1L x100 cc/hr infusing well. Provided comfort and safety environment. Call light placed w/in reached. Bed kept low and in locked position. Will turn, reposition and offload heels as per protocol. Will continue to monitor.
--- NOTE | 2016-06-10 07:23 | NUR ---
CARTON CATCHER NOTES PTS ON BED AWAKE ALERT AND VERBALLY RESPONSIVE ,NO SOB NO DISTRESS , NO FACIAL GRIMACES NOTED PTS ON TELE AFIB ON THE MONITOR ,BLOOD SUGAR FOR 730 AM IS 70 NO COVERAGE GIVEN PER SLIDING PER SLIDING SCALE, PTS ENDORSE TO NIKI RN DAY FOR CONTINUITY OF CARE.
[2016-06-10 07:44] LABS: EOSINOPHILS % (AUTO) 0.3 % (0.0-6.0); HEMATOCRIT 30 % (33-45); HEMOGLOBIN 9.9 g/dL (11.5-14.8); LYMPHOCYTES # (AUTO) 1.5 /CMM (0.8-4.8); LYMPHOCYTES % (AUTO) 10.5 % (20.0-44.0); MEAN CORPUSCULAR HEMOGLOBIN 31 PG (26.0-33.0); MEAN CORPUSCULAR HGB CONC 32 g/dl (31.0-36.0); MEAN CORPUSCULAR VOLUME 97 fL (82-100); MONOCYTES # (AUTO) 0.4 /CMM (0.1-1.30); NEUTROPHILS # (AUTO) 12.1 /CMM (1.8-8.9); NEUTROPHILS % (AUTO) 86.2 % (43.0-81.0); PLATELET COUNT (AUTO) 260 /CMM (150-450); RDW COEFFICIENT OF VARIATION 17.7 (11.5-15.0); RED BLOOD CELL COUNT(AUTO) 3.14 MIL/uL (4.0-5.2)
[2016-06-10 08:00] VITALS: BP 106/85
[2016-06-10 08:02] LABS: CALCIUM, SERUM 8.3 mg/dL (8.5-10.1); CREATININE 1.1 mg/dL (0.6-1.3)
[2016-06-10] MEDS: MEGESTROL ACETATE 40 MG TABLET PO SCH ×2 (08:07→17:12)
[2016-06-10] MEDS: LIOTHYRONINE SODIUM (5 MCG/TA 5 MCG TABLET PO SCH (08:07)
[2016-06-10] MEDS: predniSONE 10 MG TABLET PO SCH (08:08)
[2016-06-10] MEDS: CHOLECALCIFEROL 1,000 UNIT TABLET (VIT D3) PO SCH (08:08)
[2016-06-10] MEDS: LEVOTHYROXINE SODIUM 75 MCG TABLET PO SCH (08:08)
[2016-06-10] MEDS: METOPROLOL SUCCINATE 25 MG TAB.SR.24H PO SCH (08:08)
[2016-06-10] MEDS: PANTOPRAZOLE 40 MG TABLET.DR PO SCH (08:08)
[2016-06-10] MEDS: ALLOPURINOL 100 MG TABLET PO SCH (08:09)
[2016-06-10] MEDS: CYANOCOBALAMIN 500 MCG TABLET PO SCH (08:09)
[2016-06-10] MEDS: SENNOSIDES 8.6 MG TABLET PO SCH ×2 (08:10→17:11)
[2016-06-10] MEDS: DIGOXIN 0.125 MG TABLET PO SCH (08:10)
[2016-06-10] MEDS: LACTOBACILLUS RHAMNOSUS GG 1 EACH CAP.SPRINK PO SCH ×2 (08:10→17:11)
[2016-06-10 08:11] LABS: HOMOCYSTEINE, PLASMA 16.9 umol/L (0.0-15.0)
[2016-06-10] MEDS: Z GUARD REMEDY 2 OZ OINT TP SCH (08:11)
[2016-06-10] MEDS: FLUTICASONE/SALMETEROL DISKUS IH SCH ×2 (08:11→17:15)
[2016-06-10] MEDS: HYDROGEL DRESSING 90 GM TUBE TP SCH (08:12)
[2016-06-10] MEDS: NEOMY SULF/BACITRAC ZN/POLY 15 GM TUBE TP SCH (08:12)
[2016-06-10] MEDS: ALBUTEROL HALF STRENGTH 1.25 MG/3 ML VIAL.NEB NEB SCH ×4 (08:48→19:44)
[2016-06-10] MEDS: IPRATROPIUM NEB FS 0.5 MG/2.5 ML AMPUL.NEB NEB SCH ×4 (08:48→19:44)
[2016-06-10] MEDS: LOSARTAN POTASSIUM 50 MG TABLET PO SCH (09:06)
[2016-06-10] MEDS: DILTIAZEM HCL CD 120 MG PO SCH (09:06)
[2016-06-10] MEDS: AZITHROMYCIN 500 MG in IV D5W 250 ML IV SCH (11:42)
--- NOTE | 2016-06-10 13:00 | NUR ---
MS RN NOTES: Pt seen and examined by ERICA Marinelli.
[2016-06-10] MEDS ORDERED: LEVOFLOXACIN 750 MG /D5W 150ML 750 MG in PREMIX 1 EA IV SCH (13:30)
[2016-06-10] MEDS ORDERED: PIPERACILLIN /TAZOBACTAM 3.375 G in IV D5W 50 ML IV SCH (13:48)
[2016-06-10] MEDS: ACETYLCYSTEINE 20% SOLN 800 MG/4 ML VIAL NEB SCH ×3 (13:50→23:20)
[2016-06-10 16:00] VITALS: BP 83/55
--- NOTE | 2016-06-10 18:58 | NUR ---
MS RN CLOSING NOTES: No acute changes noted w/in shift. Pt not in any distress. On O2 at 3lpm/NC, no SOB noted. Pt has CARLOS G18 midline patent and intact, no signs of infection/ infiltration noted with IVF of NS 1L x100 cc/hr infusing well. Kept well rested & comfortable. Call light placed w/in reached. Bed kept low and in locked position. Turned, repositioned, & offloaded heels. Wound care done. Will endorse to PM RN for ECHO.
[2016-06-10 20:00] VITALS: BP 164/87
--- NOTE | 2016-06-10 20:00 | NUR ---
MS RN NOTES RECEIVED PTS ON BED AWAKE ALERT AND VERBALLY RESPONSIVE ABLE TO MAKE NEEDS KNOWN , ON O2 AT 3LITERS VIA NC SATING 97 %, NO SOB NO DISTRESS NOTED, DENIES PAIN AT THIS TIME , V/S STABLE AFEBRILE , ALL DUE MEDS GIVEN ORDERED ALL NEEDS ATTENDED TOO CALL LIGHT WITHIN REACH KEPT PTS CLEAN DRY AND COMFORTABLE TURNED AND REPOSITION Q2 HRS PER PROTOCOL ,HOB ELEVATED FOR ASPIRATION PRECAUTION.WILL CONTINUE TO MONITOR PTS.
[2016-06-10 20:31] LABS: TROPONIN I 0.133 ng/mL (0.00-0.056)
[2016-06-10] MEDS: *INSULIN REGULAR(HUMULIN R)HUM 100 UNIT/ML VIAL SQ PRN (21:53)
[2016-06-10] MEDS: MIRTAZAPINE 15 MG TABLET PO SCH (21:56)
[2016-06-10] MEDS: ATORVASTATIN 10 MG TABLET PO SCH (21:56)
--- NOTE | 2016-06-11 | NUR ---
ms rn notes pts on bed sleeping comfortably , on 3liters of o2 via nc , no sob no distress noted denies pain at this time. continue on ivf ns at 100cc/hr infusing well.
[2016-06-11] MEDS: IV NS 0.9% 1,000 ML IV PRN (01:43)
[2016-06-11 04:00] VITALS: BP 116/81
[2016-06-11] MEDS: MEROPENEM 500 MG in IV NS 0.9% 50 ML IV SCH ×2 (05:14→16:52)
[2016-06-11] MEDS: INSULIN REGULAR, HUMAN 100 UNIT/ML 3 ML VIAL SQ PRN ×2 (06:44→13:27)
[2016-06-11] MEDS: BLOOD SUGAR DIAGNOSTIC 1 EACH STRIP VI SCH ×4 (06:45→21:36)
--- NOTE | 2016-06-11 06:45 | NUR ---
MS RN NOTES PTS ON BED AWAKE ALERT AND VERBALLY RESPONSIVE , NO SOB NO DISTRESS NOTED DENIES PAIN AT THIS TIME , V/S STABLE AFEBRILE , BLOOD SUGAR FOR 730 IS 102 NO COVERAGE GIVEN PER SLIDING SCALE PTS REMAIN ON NS AT 100 CC/HR WELL TOLERATED, WILL ENDORSE TO RN DAY SHIFT FOR CONTINUTY OF CARE.
--- NOTE | 2016-06-11 07:15 | NUR ---
RN INITIAL NOTE PT RECEIVED IN BED, RESTING COMFORTABLY. ALERT AND ORIENTED. ABLE TO MAKE NEEDS KNOWN. PT DENIES PAIN AT THIS TIME. RESPIRATIONS EVEN, BUT LABORED. ON 3L NC. PRODUCTIVE COUGH. PT IS SHORT OF BREATH. BREATHING TREATMENT INITIATED. HOB IN HIGH FOWLERS. SATING 94%. CARLOS MIDLINE. IV SITE, FLUSHED, PATENT AND INTACT. DRESSING C/D/I. NS RUNNING AT 100ML/HR. SKIN WARM AND DRY TO TOUCH. WOUND DRESSINGS CLEAN AND DRY. SAFETY MEASURES IN PLACE, BED IN LOCKED, LOW POSITION, TWO SIDE RAILS UP. BED ALARM ON. CALL LIGHT WITHIN REACH. WILL CONTINUE TO MONITOR.
--- NOTE | 2016-06-11 07:35 | NUR ---
ms rn notes pts on bed awake alert and responsive refuse to blood extraction , explain risk and benefit , pts still refusing , endorse to rn day to flu and continue care.
[2016-06-11] MEDS: ACETYLCYSTEINE 20% SOLN 800 MG/4 ML VIAL NEB SCH ×3 (07:45→23:16)
[2016-06-11 08:00] VITALS: BP 137/71
[2016-06-11] MEDS: MEGESTROL ACETATE 40 MG TABLET PO SCH ×2 (08:14→16:52)
[2016-06-11] MEDS: LIOTHYRONINE SODIUM (5 MCG/TA 5 MCG TABLET PO SCH (08:14)
[2016-06-11] MEDS: predniSONE 20 MG TABLET PO SCH (08:14)
[2016-06-11] MEDS: METOPROLOL SUCCINATE 25 MG TAB.SR.24H PO SCH (08:15)
[2016-06-11] MEDS: DILTIAZEM HCL CD 120 MG PO SCH (08:15)
[2016-06-11] MEDS: CHOLECALCIFEROL 1,000 UNIT TABLET (VIT D3) PO SCH (08:15)
[2016-06-11] MEDS: CYANOCOBALAMIN 500 MCG TABLET PO SCH (08:15)
[2016-06-11] MEDS: LACTOBACILLUS RHAMNOSUS GG 1 EACH CAP.SPRINK PO SCH ×2 (08:15→16:52)
[2016-06-11] MEDS: SENNOSIDES 8.6 MG TABLET PO SCH ×2 (08:16→16:52)
[2016-06-11] MEDS: ALLOPURINOL 100 MG TABLET PO SCH (08:16)
[2016-06-11] MEDS: DIGOXIN 0.125 MG TABLET PO SCH (08:16)
[2016-06-11] MEDS: PANTOPRAZOLE 40 MG TABLET.DR PO SCH (08:16)
[2016-06-11] MEDS: LOSARTAN POTASSIUM 50 MG TABLET PO SCH (08:17)
[2016-06-11] MEDS: HYDROGEL DRESSING 90 GM TUBE TP SCH (08:18)
[2016-06-11] MEDS: FLUTICASONE/SALMETEROL DISKUS IH SCH ×2 (08:18→16:51)
[2016-06-11] MEDS: Z GUARD REMEDY 2 OZ OINT TP SCH (08:18)
[2016-06-11] MEDS: NEOMY SULF/BACITRAC ZN/POLY 15 GM TUBE TP SCH (08:18)
[2016-06-11] MEDS: LEVOTHYROXINE SODIUM 75 MCG TABLET PO SCH (08:23)
[2016-06-11] MEDS ORDERED: FUROSEMIDE 20 MG/2 ML VIAL IV ONE (11:30)
[2016-06-11] MEDS: FUROSEMIDE 20 MG/2 ML VIAL IV SCH (13:00)
[2016-06-11] MEDS: IPRATROPIUM NEB FS 0.5 MG/2.5 ML AMPUL.NEB NEB SCH (13:19)
[2016-06-11] MEDS: ALBUTEROL HALF STRENGTH 1.25 MG/3 ML VIAL.NEB NEB SCH (13:19)
--- NOTE | 2016-06-11 13:30 | NUR ---
RN NOTE ALREADY GAVE LASIX DOSE x1
[2016-06-11 16:00] VITALS: BP 104/72
[2016-06-11] MEDS ORDERED: IV SET PRIMARY PUMP SET 1 EA INFUS.SET MC ONE (16:53)
[2016-06-11] MEDS: *INSULIN REGULAR(HUMULIN R)HUM 100 UNIT/ML VIAL SQ PRN ×2 (16:59→21:37)
--- NOTE | 2016-06-11 18:47 | NUR ---
RN CLOSING NOTES PT RESTING IN BED COMFORTABLY, SON AT BEDSIDE. ALL MD ORDERS CARRIED OUT. PATIENT KEPT CLEAN AND DRY. ALL SAFETY MEASURES IMPLEMENTED AT ALL TIMES. REPORT WILL BE GIVEN TO PM RN FOR ECHO.
[2016-06-11 20:00] VITALS: BP 100/64
[2016-06-11] MEDS: ATORVASTATIN 10 MG TABLET PO SCH (21:23)
[2016-06-11] MEDS: MIRTAZAPINE 15 MG TABLET PO SCH (21:23)
[2016-06-12 04:00] VITALS: BP 136/76
[2016-06-12] MEDS: MEROPENEM 500 MG in IV NS 0.9% 50 ML IV SCH ×2 (04:53→17:40)
[2016-06-12] MEDS: BLOOD SUGAR DIAGNOSTIC 1 EACH STRIP VI SCH ×4 (06:33→21:37)
[2016-06-12 06:56] LABS: BASOPHILS % (AUTO) 0.1 % (0.0-2.0); HEMATOCRIT 31 % (33-45); HEMOGLOBIN 10.3 g/dL (11.5-14.8); LYMPHOCYTES % (AUTO) 9.7 % (20.0-44.0); MEAN CORPUSCULAR HEMOGLOBIN 33 PG (26.0-33.0); MEAN CORPUSCULAR HGB CONC 34 g/dl (31.0-36.0); MEAN CORPUSCULAR VOLUME 99 fL (82-100); MONOCYTES % (AUTO) 5.4 % (2.0-12.0); NEUTROPHILS % (AUTO) 84.8 % (43.0-81.0); PLATELET COUNT (AUTO) 288 /CMM (150-450); RDW COEFFICIENT OF VARIATION 18.3 (11.5-15.0); RED BLOOD CELL COUNT(AUTO) 3.09 MIL/uL (4.0-5.2); WHITE BLOOD COUNT (AUTO) 10.3 K/uL (4.3-11.0)
[2016-06-12 06:57] LABS: MONOCYTES # (AUTO) 0.6 /CMM (0.1-1.30); NEUTROPHILS # (AUTO) 8.7 /CMM (1.8-8.9)
--- NOTE | 2016-06-12 07:15 | NUR ---
RN MS INITIAL NOTES RECEIVED REPORT AND PT FROM PM NURSE, PT RESTING IN BED, A&O X2-3 CONFUSED AT TIMES, ON 3L NC SAT ABOVE 97%, RT UPP ARM MIDLINE INTACT NO S.S OF INFILTRATION, ALL NEEDS MET, ALL SAFETY MEASURES INITIATED, SIDE RAILS X2, BED LOW AND LOCKED, CALL LIGHT WITHIN REACH, WILL CONTINUE TO MONITOR.
[2016-06-12 07:18] LABS: ALBUMIN 2.2 g/dL (3.4-5.0); BILIRUBIN,TOTAL 0.4 mg/dL (0.2-1.0); CALCIUM, SERUM 8.4 mg/dL (8.5-10.1); CREATININE 1.2 mg/dL (0.6-1.3); MAGNESIUM 1.7 mg/dL (1.8-2.4); PHOSPHORUS 3.2 mg/dL (2.5-4.9); TOTAL PROTEIN, SERUM 5.6 g/dL (6.4-8.2)
[2016-06-12 08:00] VITALS: BP 134/83
[2016-06-12] MEDS: ALBUTEROL HALF STRENGTH 1.25 MG/3 ML VIAL.NEB NEB SCH ×3 (08:36→16:31)
[2016-06-12] MEDS: IPRATROPIUM NEB FS 0.5 MG/2.5 ML AMPUL.NEB NEB SCH ×3 (08:36→16:31)
[2016-06-12] MEDS: ACETYLCYSTEINE 20% SOLN 800 MG/4 ML VIAL NEB SCH ×3 (08:36→23:55)
[2016-06-12] MEDS: METOPROLOL SUCCINATE 25 MG TAB.SR.24H PO SCH (08:38)
[2016-06-12] MEDS: PANTOPRAZOLE 40 MG TABLET.DR PO SCH (08:38)
[2016-06-12] MEDS: predniSONE 20 MG TABLET PO SCH (08:38)
[2016-06-12] MEDS: LIOTHYRONINE SODIUM (5 MCG/TA 5 MCG TABLET PO SCH (08:38)
[2016-06-12] MEDS: MEGESTROL ACETATE 40 MG TABLET PO SCH ×2 (08:38→17:39)
[2016-06-12] MEDS: LACTOBACILLUS RHAMNOSUS GG 1 EACH CAP.SPRINK PO SCH ×2 (08:39→17:39)
[2016-06-12] MEDS: DIGOXIN 0.125 MG TABLET PO SCH (08:39)
[2016-06-12] MEDS: DILTIAZEM HCL CD 120 MG PO SCH (08:39)
[2016-06-12] MEDS: LEVOTHYROXINE SODIUM 75 MCG TABLET PO SCH (08:39)
[2016-06-12] MEDS: FUROSEMIDE 20 MG/2 ML VIAL IV SCH (08:39)
[2016-06-12] MEDS: CHOLECALCIFEROL 1,000 UNIT TABLET (VIT D3) PO SCH (08:39)
[2016-06-12] MEDS: ALLOPURINOL 100 MG TABLET PO SCH (08:39)
[2016-06-12] MEDS: CYANOCOBALAMIN 500 MCG TABLET PO SCH (08:39)
[2016-06-12] MEDS: LOSARTAN POTASSIUM 50 MG TABLET PO SCH (08:40)
[2016-06-12] MEDS: SENNOSIDES 8.6 MG TABLET PO SCH ×2 (08:40→17:39)
[2016-06-12] MEDS: FLUTICASONE/SALMETEROL DISKUS IH SCH ×2 (08:41→17:39)
[2016-06-12] MEDS: HYDROGEL DRESSING 90 GM TUBE TP SCH (08:41)
[2016-06-12] MEDS: Z GUARD REMEDY 2 OZ OINT TP SCH (08:41)
[2016-06-12] MEDS: NEOMY SULF/BACITRAC ZN/POLY 15 GM TUBE TP SCH (08:41)
[2016-06-12] MEDS ORDERED: MAGNESIUM OXIDE 400 MG TABLET PO ONE (10:30)
[2016-06-12] MEDS: FUROSEMIDE 40 MG/4 ML VIAL IV SCH ×3 (11:46→17:39)
[2016-06-12] MEDS: INSULIN REGULAR, HUMAN 100 UNIT/ML 3 ML VIAL SQ PRN ×2 (11:51→17:45)
[2016-06-12 16:00] VITALS: BP 95/52
--- NOTE | 2016-06-12 18:41 | NUR ---
RN MS ENDING NOTES PT STABLE WITH NO ACUTE CHANGES, ALL DUE MEDS GIVEN, ALL NEEDS MET, BED BATH PROVIDED WOUND TX, WILL ENDORSE TO PM NURSE.
[2016-06-12 20:00] VITALS: BP 157/65
[2016-06-12 21:00] VITALS: BP 100/54
[2016-06-12] MEDS: ATORVASTATIN 10 MG TABLET PO SCH (21:32)
[2016-06-12] MEDS: MIRTAZAPINE 15 MG TABLET PO SCH (21:33)
[2016-06-12] MEDS: *INSULIN REGULAR(HUMULIN R)HUM 100 UNIT/ML VIAL SQ PRN (21:41)
[2016-06-13 04:00] VITALS: BP 123/78
[2016-06-13] MEDS: MEROPENEM 500 MG in IV NS 0.9% 50 ML IV SCH (05:28)
--- NOTE | 2016-06-13 07:30 | NUR ---
RN MD NOTES PT IN BED, AWAKE, ALERT AND ORIENTED, DENIES PAIN OR ANY DISCOMFORT, BREATHING PATTERN NORMAL AND NOT LABORED, CALL LIGHT WITHIN REACH, NEEDS ATTENDED.
[2016-06-13 08:00] VITALS: BP 126/78
[2016-06-13] MEDS: ACETYLCYSTEINE 20% SOLN 800 MG/4 ML VIAL NEB SCH (08:14)
[2016-06-13] MEDS: ALBUTEROL HALF STRENGTH 1.25 MG/3 ML VIAL.NEB NEB SCH ×2 (08:14→13:00)
[2016-06-13] MEDS: IPRATROPIUM NEB FS 0.5 MG/2.5 ML AMPUL.NEB NEB SCH ×2 (08:14→13:00)
[2016-06-13 08:16] LABS: HEMATOCRIT 35 % (33-45); HEMOGLOBIN 11.3 g/dL (11.5-14.8); LYMPHOCYTES # (AUTO) 1.6 /CMM (0.8-4.8); LYMPHOCYTES % (AUTO) 12.2 % (20.0-44.0); MEAN CORPUSCULAR HEMOGLOBIN 32 PG (26.0-33.0); MEAN CORPUSCULAR HGB CONC 33 g/dl (31.0-36.0); MEAN CORPUSCULAR VOLUME 98 fL (82-100); MONOCYTES # (AUTO) 0.8 /CMM (0.1-1.30); MONOCYTES % (AUTO) 6.1 % (2.0-12.0); NEUTROPHILS # (AUTO) 10.8 /CMM (1.8-8.9); NEUTROPHILS % (AUTO) 81.7 % (43.0-81.0); PLATELET COUNT (AUTO) 251 /CMM (150-450); RDW COEFFICIENT OF VARIATION 18.2 (11.5-15.0); RED BLOOD CELL COUNT(AUTO) 3.53 MIL/uL (4.0-5.2); WHITE BLOOD COUNT (AUTO) 13.3 K/uL (4.3-11.0)
[2016-06-13] MEDS: LEVOTHYROXINE SODIUM 75 MCG TABLET PO SCH (08:40)
[2016-06-13] MEDS: LOSARTAN POTASSIUM 50 MG TABLET PO SCH (08:40)
[2016-06-13] MEDS: BLOOD SUGAR DIAGNOSTIC 1 EACH STRIP VI SCH ×2 (08:41→12:08)
[2016-06-13] MEDS: CYANOCOBALAMIN 500 MCG TABLET PO SCH (08:41)
[2016-06-13] MEDS: MEGESTROL ACETATE 40 MG TABLET PO SCH (08:41)
[2016-06-13] MEDS: DILTIAZEM HCL CD 120 MG PO SCH (08:41)
[2016-06-13] MEDS: ALLOPURINOL 100 MG TABLET PO SCH (08:41)
[2016-06-13] MEDS: LIOTHYRONINE SODIUM (5 MCG/TA 5 MCG TABLET PO SCH (08:42)
[2016-06-13] MEDS: PANTOPRAZOLE 40 MG TABLET.DR PO SCH (08:42)
[2016-06-13] MEDS: SENNOSIDES 8.6 MG TABLET PO SCH (08:42)
[2016-06-13] MEDS: DIGOXIN 0.125 MG TABLET PO SCH (08:42)
[2016-06-13] MEDS: FUROSEMIDE 20 MG/2 ML VIAL IV SCH (08:42)
[2016-06-13] MEDS: predniSONE 20 MG TABLET PO SCH (08:42)
[2016-06-13 08:43] VITALS: BP 126/78
[2016-06-13] MEDS: CHOLECALCIFEROL 1,000 UNIT TABLET (VIT D3) PO SCH (08:43)
[2016-06-13] MEDS: METOPROLOL SUCCINATE 25 MG TAB.SR.24H PO SCH (08:43)
[2016-06-13] MEDS: FLUTICASONE/SALMETEROL DISKUS IH SCH (08:44)
[2016-06-13] MEDS: Z GUARD REMEDY 2 OZ OINT TP SCH (08:44)
[2016-06-13] MEDS: HYDROGEL DRESSING 90 GM TUBE TP SCH (08:44)
[2016-06-13] MEDS: EPOETIN ALFA (20,000 UNIT) 20,000 UNIT/ML VIAL SQ SCH (09:00)
[2016-06-13] MEDS: LACTOBACILLUS RHAMNOSUS GG 1 EACH CAP.SPRINK PO SCH (09:10)
[2016-06-13] MEDS: INSULIN REGULAR, HUMAN 100 UNIT/ML 3 ML VIAL SQ PRN ×2 (09:13→12:12)
[2016-06-13] MEDS ORDERED: FUROSEMIDE 40 MG/4 ML VIAL IV SCH (10:00)
[2016-06-13] MEDS: NEOMY SULF/BACITRAC ZN/POLY 15 GM TUBE TP SCH (10:38)
[2016-06-13] MEDS ORDERED: FURO20TA4 PO (12:29)
[2016-06-13] MEDS ORDERED: CLIN-63 PO (12:29)
[2016-06-13] MEDS ORDERED: CIPR-263 PO (12:29)
--- NOTE | 2016-06-13 12:30 | NUR ---
RN MS NOTES PT IN BED, AWAKE, ALERT AND ORIENTED, NO COMPLAINT OF PAIN, BREATHING PATTERN NORMAL AND NOT LABORED, PT SEEN BY IZABELLA MALDONADO, DISCHARGE ORDER GIVEN, PT AND PT'S DAUGHTER KAYODE INFORMED.
[2016-06-13] MEDS ORDERED: FURO-144 PO (12:32)
--- NOTE | 2016-06-13 14:45 | NUR ---
RN MS NOTES PT IN BED, NOT IN PAIN OR DISTRESS, PT FOR DISCHARGE BACK TO ASSISTED LIVING FACILITY, DISCHARGE AND MEDICATION INSTRUCTIONS PROVIDED TO PT AND TO PT'S DAUGHTER KAYODE, VERBALIZED UNDERSTANDING, BELONGINGS ACCOUNTED FOR, SKIN CHECK DONE, ASSISTED TO WHEELCHAIR, ASSISTED BY PARAKEET RA[facility]ER TO HOSPITAL LOBBY, PORTABLE O2 IN PLACE, LEFT WITH FAMILY IN STABLE CONDITION.
== END 2016-06-13 14:59 | DRG 871 ==
LOC: ER 10:04 → TELE1 12:18 → MEDSG1 06-10 10:57
PROVIDERS: ADMIT Internal Medicine; ATTEND Internal Medicine
PROC: 05H533Z Insertion of Infusion Device into Right Subclavian Vein, Percutaneous Approach (ICD-10-PCS; principal; 2016-06-08)
PROC: 05H533Z Insertion of Infusion Device into Right Subclavian Vein, Percutaneous Approach (ICD-10-PCS; 2016-06-09)
DX: A41.9 Sepsis, unspecified organism (principal); J18.9 Pneumonia, unspecified organism; G93.41 Metabolic encephalopathy; N17.0 Acute kidney failure with tubular necrosis; E43 Unspecified severe protein-calorie malnutrition; R53.2 Functional quadriplegia; I21.4 Non-ST elevation (NSTEMI) myocardial infarction; D68.59 Other primary thrombophilia; N39.0 Urinary tract infection, site not specified; J44.1 Chronic obstructive pulmonary disease with (acute) exacerbation; J44.0 Chronic obstructive pulmonary disease with (acute) lower respiratory infection; J84.9 Interstitial pulmonary disease, unspecified; I50.30 Unspecified diastolic (congestive) heart failure; I48.91 Unspecified atrial fibrillation; D63.8 Anemia in other chronic diseases classified elsewhere; I11.0 Hypertensive heart disease with heart failure; I25.10 Atherosclerotic heart disease of native coronary artery without angina pectoris; E78.5 Hyperlipidemia, unspecified; E11.649 Type 2 diabetes mellitus with hypoglycemia without coma; E83.42 Hypomagnesemia; E03.9 Hypothyroidism, unspecified; E11.65 Type 2 diabetes mellitus with hyperglycemia; H61.20 Impacted cerumen, unspecified ear; M10.9 Gout, unspecified; Z66 Do not resuscitate; Z87.891 Personal history of nicotine dependence; Z99.81 Dependence on supplemental oxygen; S81.011A Laceration without foreign body, right knee, initial encounter; X58.XXXA Exposure to other specified factors, initial encounter; Y92.9 Unspecified place or not applicable
CPT/HCPCS: 36415; 71010-TC; 80048-TC; 80053-TC; 80061-TC; 80076-TC; 80162-TC; 81000-TC; 82306; 82746; 82962-TC; 83090; 83605-TC; 83735-TC; 83880; 83921; 84100-TC; 84439-TC; 84443-TC; 84481; 84484-TC; 85025-TC; 85730-TC; 87040-TC; 87070-TC; 87081-TC; 87086-TC; 92521; 93307-TC; 94799-TC; 97001-TC; 97003-TC; 97110-TC; 97530-TC; A4216; A4606; A6248; A6253; A6403; J0456; J0696; J0885; J1815; J1940; J1956; J2185; J2543; J3475; J7030; J7060; Z7610

== ENCOUNTER 2016-06-17 10:13 | Inpatient (IN) | payer MEDICARE, BC ==
[~2016-06-17] VITALS: Ht 165.1 cm; Wt 54.4 kg
[~2016-06-17 10:13] MED LIST: ALBU1.257 NEB; ALLO100T PO; ATOR10TA PO; CIPR-263 PO; CLIN-63 PO; CLON0.1T PO; DIGO125T PO; DILT120C2 PO; DOCU-25 PO; EPOE200011 SQ; FLUT1DIS INH; FURO-144 PO; INSU100I14 SQ; INSU3INS6 SQ; IPRA0.2S49 NEB; LEVO75TA7 PO; LIOT5TAB8 PO; LOSA50TA21 PO; MEGE400O PO; METF500T4 PO; METO-302 PO; MIRT7.5T10 PO; POLY119P2 PO; PRED10TA PO; SACC250C6 PO; SENN8.6T6 PO; TIOT18CA3 INH
--- NOTE | 2016-06-17 10:14 | NUR ---
PT BBRA 89 FROM [facility] @ SO: SOB, ALOC, HYPOGLYCEMIA. PT AWAKE ALERT BUT CONFUSED. PT COMPLAINS OF PAIN AND GRIMACING WHEN LIGHTLY TOUCHED. PT BUE BLE DISCOLORATION AND COOL TO TOUCHED. CRACKLES AUDIBLE BILATERAL LUNG. PLACED ON MONITOR. TACHYCARDIA, TACHYPNEA. PLACED ON O2 @2LPM VIA NC ORDERED. UPDATED MD AND AWAITING MD ORDER.
--- NOTE | 2016-06-17 10:14 | NUR ---
BS-46 UPDATED MD NEW ORDER FROM MD RECEIVED.
[2016-06-17] MEDS ORDERED: DEXTROSE 50%-WATER 50 ML DISP.SYRIN ONE ×2 (10:29→16:41)
[2016-06-17] MEDS ORDERED: IV NS 0.9% 500 ML BAG IV ONE ×2 (10:30→11:00)
--- NOTE | 2016-06-17 10:30 | NUR ---
LAC#20 IV ACCESS. LAB AT BEDSIDE FOR BLOOD DRAW
--- NOTE | 2016-06-17 10:30 | NUR ---
XRAY AT BEDSIDE
[2016-06-17] MEDS ORDERED: FURO40TA5 PO (10:41)
[2016-06-17] MEDS ORDERED: BLOO-668 IN (10:41)
--- NOTE | 2016-06-17 10:45 | NUR ---
RECHECK BS -205 AFTER D50 ADMIN. AWARE
[2016-06-17] MEDS ORDERED: DEXTROSE 50%-WATER 50 ML DISP.SYRIN IVP ONE ×2 (11:00→17:00)
[2016-06-17 11:06] LABS: BASOPHILS # (AUTO) 0.1 /CMM (0.0-0.2); BASOPHILS % (AUTO) 0.8 % (0.0-2.0); EOSINOPHILS % (AUTO) 0.1 % (0.0-6.0); HEMATOCRIT 35 % (33-45); HEMOGLOBIN 11.1 g/dL (11.5-14.8); LYMPHOCYTES # (AUTO) 1.5 /CMM (0.8-4.8); LYMPHOCYTES % (AUTO) 8.4 % (20.0-44.0); MEAN CORPUSCULAR HEMOGLOBIN 31 PG (26.0-33.0); MEAN CORPUSCULAR HGB CONC 32 g/dl (31.0-36.0); MEAN CORPUSCULAR VOLUME 99 fL (82-100); MONOCYTES # (AUTO) 0.4 /CMM (0.1-1.30); MONOCYTES % (AUTO) 2.2 % (2.0-12.0); NEUTROPHILS # (AUTO) 16.2 /CMM (1.8-8.9); NEUTROPHILS % (AUTO) 88.5 % (43.0-81.0); PLATELET COUNT (AUTO) 173 /CMM (150-450); RDW COEFFICIENT OF VARIATION 18.7 (11.5-15.0); RED BLOOD CELL COUNT(AUTO) 3.55 MIL/uL (4.0-5.2); WHITE BLOOD COUNT (AUTO) 18.2 K/uL (4.3-11.0)
[2016-06-17] MEDS ORDERED: IV NS 0.9% 1,000 ML IV ONE (11:09)
[2016-06-17] MEDS ORDERED: IV SET PRIMARY PUMP SET 1 EA INFUS.SET MC ONE ×2 (11:09→17:00)
[2016-06-17 11:15] LABS: CALCIUM, SERUM 8.3 mg/dL (8.5-10.1); CREATININE 1.1 mg/dL (0.6-1.3); POTASSIUM 3.8 mmol/L (3.5-5.1)
[2016-06-17 11:21] LABS: ALBUMIN 2.2 g/dL (3.4-5.0); BILIRUBIN,DIRECT 0.1 mg/dL (0.0-0.2); BILIRUBIN,TOTAL 0.4 mg/dL (0.2-1.0); TOTAL PROTEIN, SERUM 5.4 g/dL (6.4-8.2)
[2016-06-17 11:23] LABS: TROPONIN I 0.223 ng/mL (0.00-0.056)
[2016-06-17] MEDS ORDERED: IV NS 0.9% 1,000 ML BAG IV ONE (11:30)
--- NOTE | 2016-06-17 11:40 | NUR ---
URINE SAMPLE COLLECTED SENT TO LAB
[2016-06-17] MEDS ORDERED: IV NS 0.9% 1,000 ML ONE (11:49)
[2016-06-17] MEDS ORDERED: IV NS 0.9% 500 ML IV ONE (11:49)
--- NOTE | 2016-06-17 11:49 | NUR ---
STARTED MEDITHERM FOR HYPOTHERMIA
[2016-06-17 11:53] LABS: LACTIC ACID 6.5 mmol/L (0.4-2.0)
[2016-06-17] MEDS ORDERED: VANCOMYCIN 1 GM in IV D5W 250 ML IV ONE (12:00)
[2016-06-17] MEDS ORDERED: PIPERACILLIN /TAZOBACTAM 3.375 G in IV D5W 50 ML IV ONE (12:00)
[2016-06-17] MEDS ORDERED: SECONDARY IV SET 1 EA INFUS.SET MC ONE ×3 (12:00→18:59)
--- NOTE | 2016-06-17 12:03 | NUR ---
CALLED NURSING SUP. FOR TELE BED
--- NOTE | 2016-06-17 12:38 | NUR ---
CALLED AT [phone], TRANSFERRED CALL TO
--- NOTE | 2016-06-17 12:51 | NUR ---
[facility] PAGED, FAMILY RESOURCE MANAGEMENT SPECIALIST
--- NOTE | 2016-06-17 12:54 | NUR ---
GAVE REPORT TO INEZ BERNARDFACE PAINTER BED 317-2 .
[2016-06-17 13:09] LABS: INR 1.1 (0.87-1.13); PROTHROMBIN TIME 11.8 SECS (9.5-12.7)
[2016-06-17 13:32] LABS: APPEARANCE,URINE Clear (CLEAR); BILIRUBIN,URINE Negative (NEGATIVE); BLOOD, URINE Moderate Ery/uL (NEGATIVE); COLOR,URINE Yellow (YELLOW); KETONES,URINE Negative (NEGATIVE); LEUKOCYTE ESTERASE ,URINE Trace (NEGATIVE); NITRITE, URINE Negative (NEGATIVE); PROTEIN,URINE Trace mg/dl (NEGATIVE); UROBILINOGEN,URINE 0.2 EU/dL (0.2)
[2016-06-17 13:33] LABS: UGLUCOSE 250 MG/DL mg/dL (NEGATIVE)
[2016-06-17 13:35] LABS: RBC,URINE 21-50 /HPF (0-2)
[2016-06-17 13:36] LABS: ADD URINE CULTURE NO; BACTERIA,URINE Few /HPF (None Seen); HYALINE CASTS, URINE Few /LPF (None Seen); SQUAMOUS EPITHELIAL CELL,UR Moderate /HPF (None Seen)
--- NOTE | 2016-06-17 13:50 | NUR ---
TRANSFER TO TELEMETRY VIA [facility] PROTOCOL
[2016-06-17] MEDS ORDERED: IV D5/0.45 NACL 1,000 ML IV PRN (13:56)
[2016-06-17] MEDS ORDERED: ZOLPIDEM TARTRATE 5 MG TABLET PO PRN (14:00)
[2016-06-17] MEDS ORDERED: ACETAMINOPHEN 325 MG TABLET PO PRN (14:00)
[2016-06-17] MEDS ORDERED: CLONIDINE HCL 0.1 MG TABLET PO PRN (14:00)
[2016-06-17] MEDS ORDERED: ONDANSETRON HCL/PF 4 MG/2 ML VIAL IVP PRN (14:00)
[2016-06-17] MEDS ORDERED: MAGNESIUM HYDROXIDE 30 ML UDC PO PRN (14:00)
[2016-06-17] MEDS: METOPROLOL SUCCINATE 25 MG TAB.SR.24H PO SCH (14:00)
[2016-06-17] MEDS ORDERED: SENNOSIDES 8.6 MG TABLET PO PRN (14:00)
[2016-06-17] MEDS: DIGOXIN 0.125 MG TABLET PO SCH (14:00)
[2016-06-17] MEDS: LIOTHYRONINE SODIUM (5 MCG/TA 5 MCG TABLET PO SCH (14:00)
[2016-06-17] MEDS: DILTIAZEM HCL CD 120 MG PO SCH (14:00)
[2016-06-17] MEDS: LOSARTAN POTASSIUM 50 MG TABLET PO SCH (14:00)
[2016-06-17] MEDS ORDERED: MAG HYDROX/AL HYDROX/SIMETH 30 ML UDC PO PRN (14:00)
[2016-06-17] MEDS: predniSONE 10 MG TABLET PO SCH (14:00)
[2016-06-17] MEDS: PANTOPRAZOLE 40 MG TABLET.DR PO SCH (14:00)
[2016-06-17] MEDS ORDERED: IPRATROPIUM NEB FS 0.5 MG/2.5 ML AMPUL.NEB NEB PRN (14:00)
[2016-06-17] MEDS ORDERED: DOCUSATE SODIUM 100 MG CAPSULE PO PRN (14:00)
[2016-06-17] MEDS ORDERED: Z GUARD REMEDY 2 OZ OINT TP PRN (14:00)
[2016-06-17] MEDS ORDERED: HYDROCODONE/APAP 5/325MG 1 EACH TABLET PO PRN (14:00)
--- NOTE | 2016-06-17 14:15 | NUR ---
SENIOR FINANCIAL REPORTING ACCOUNTANTGENERAL EXPEDITOR NOTE PATIENT IS ALERT AND ORIENTED x2. TRANSFERRED FROM EMERGENCY ROOM. NO PAIN OR DISCOMFORT NOTED. NO SOB OR DISTRESS. IV INTACT AND PATENT NO REDNESS OR SWELLING, LEFT FOREARM. REGULAR DIET. PATIENT CAME IN FOR SEPSIS, HYPOGLYCEMIA AND HYPOTHERMIA. RECEIVED REPORT FROM JOANA GAYLE. CALL LIGHT WITHIN REACH. SAFETY MEASURSE IMPLEMENTED. FAMILY AT BEDSIDE.
--- NOTE | 2016-06-17 15:00 | NUR ---
MS RN NOTE NOTICED PATIENT WAS CONFUSED. CHECKED PATIENT'S BLOOD SUGAR -11. GAVE DEXTROSE 50% RECHECKED AT BLOOD SUGAR WAS AT 274. NOTIFIED CHARGE NURSE AND MD MADE AWARE.
[2016-06-17] MEDS: ALLOPURINOL 100 MG TABLET PO SCH (15:14)
[2016-06-17] MEDS: LEVOTHYROXINE SODIUM 75 MCG TABLET PO SCH (15:18)
[2016-06-17 16:00] VITALS: BP 150/70
[2016-06-17] MEDS: ALBUTEROL HALF STRENGTH 1.25 MG/3 ML VIAL.NEB NEB SCH ×2 (16:54→23:17)
[2016-06-17] MEDS: IPRATROPIUM NEB FS 0.5 MG/2.5 ML AMPUL.NEB NEB SCH ×2 (16:55→23:17)
[2016-06-17] MEDS: FLUTICASONE/SALMETEROL DISKUS IH SCH (17:00)
[2016-06-17] MEDS: BLOOD SUGAR DIAGNOSTIC 1 EACH STRIP IN SCH ×2 (17:13→22:13)
[2016-06-17] MEDS ORDERED: FEE PK DOSING 1 MIN EA MC ONE (17:50)
[2016-06-17] MEDS: PIPERACILLIN /TAZOBACTAM 2.25 G in IV D5W 50 ML IV SCH (18:00)
--- NOTE | 2016-06-17 19:18 | NUR ---
FINANCIAL BUSINESS ANALYST CLOSING NOTE PATIENT IS ALERT AND ORIENTED x2. NO PAIN AT THIS TIME. NO SOB OR DISTRESS NOTED. SAFETY MEASURES IMPLEMENTED AT ALL TIMES. CALL LIGHT WITHIN REACH. IV INTACT AND PATENT NO REDNESS OR SWELLING. WOUND CONSULT AND PT CONSULT FOR PATIENT PUT IN. WILL ENDORSE TO MEDICAL ILLUSTRATOR NURSE
--- NOTE | 2016-06-17 19:30 | NUR ---
WILL CALL CLERK NOTES RECEIVED PT IN BED, AWAKE, ALERT TO SELF AND VERBALLY RESPONSIVE,. SON AT BED SIDE. NO DISTRESS, NO SOB NOTED. ON 02 @ 3LPM VIA NC HERB WELL. NO C/O PAIN OR DISCOMFORT AT THIS TIME. IV SITE ON LAC INTACT AND PATENT, IVF INFUSING WELL. ALL NEEDS AT THIS TIME ATTENDED AND MET. KEPT COMFORTABLE. SAFETY PRECAUTIONS OBSERVED. HANDLED PT GENTLY DURING CARE. CALL LIGHT WITHIN REACH. WILL CONT TO MONITOR.
[2016-06-17 20:00] VITALS: BP 101/75
[2016-06-17 22:00] VITALS: BP 101/75
[2016-06-17] MEDS ORDERED: ATORVASTATIN 10 MG TABLET PO SCH (22:00)
--- NOTE | 2016-06-17 22:13 | NUR ---
PT'S BS : 54 AT THIS TIME, PT ON D5 1/2 NS INFUSING WELL. NO S/S OF HYPOGLYCEMIA NOTED AT THIS TIME, OJ GIVEN HERB WELL. WILL RECHECK BS IN 30 MINS .CHARGE NURSE AWARE
--- NOTE | 2016-06-17 22:48 | NUR ---
pt eating vanilla pudding at this time, brandy well.
--- NOTE | 2016-06-17 23:03 | NUR ---
RECHECKED PT'S BLOOD SUGAR : 93 AT THIS TIME. WILL CONT TO MONITOR .
[2016-06-18] VITALS: BP 137/79
[2016-06-18] MEDS: PIPERACILLIN /TAZOBACTAM 2.25 G in IV D5W 50 ML IV SCH ×3 (00:26→12:15)
[2016-06-18 04:00] VITALS: BP 113/57
[2016-06-18] MEDS ORDERED: SECONDARY IV SET 1 EA INFUS.SET MC ONE (06:00)
[2016-06-18] MEDS ORDERED: VANCOMYCIN 500 MG in IV D5W 100ml IV SCH (06:00)
[2016-06-18] MEDS: BLOOD SUGAR DIAGNOSTIC 1 EACH STRIP IN SCH ×2 (06:29→11:43)
--- NOTE | 2016-06-18 06:36 | NUR ---
MACHINE LOADER NOTES PT IN BED, RESTING COMFORTABLY AT THIS TIME. AROUSABLE, ALERT TO SELF AND VERBALLY RESPONSIVE. NO DISTRESS, NO SOB NOTED. ON 02 @ 3LPM VIA NC HERB WELL. NO C/O PAIN OR DISCOMFORT AT THIS TIME. IV SITE ON RIGHT WRIST INTACT AND PATENT, IVF INFUSING WELL. ALL NEEDS ATTENDED AND MET. NO S/S OF HYPO/ HYPERGLYCEMIA NOTED. KEPT COMFORTABLE. SAFETY PRECAUTIONS OBSERVED. HANDLED PT GENTLY DURING CARE. CALL LIGHT WITHIN REACH. WILL ENDORSE TO NEXT SHIFT FOR ECHO.
--- NOTE | 2016-06-18 07:10 | NUR ---
TERMITE CONTROL TECHNICIAN INITIAL NOTE REPORT RECEIVED AT THE BEDSIDE. PATIENT IS SLEEPING. NO SOB OR DISTRESS NOTED AT THIS TIME. PATIENT DOES NOT APPEAR TO BE IN PAIN, NO FACIAL GRIMACE NOTED. HEART RATE IS AFIB AT 110. BED IN A LOW POSITION, CALL LIGHT WITHIN PATIENT REACH. WILL CONTINUE TO MONITOR.
[2016-06-18 08:00] VITALS: BP 90/66
[2016-06-18] MEDS: IPRATROPIUM NEB FS 0.5 MG/2.5 ML AMPUL.NEB NEB SCH ×2 (08:46→15:01)
[2016-06-18] MEDS: ALBUTEROL HALF STRENGTH 1.25 MG/3 ML VIAL.NEB NEB SCH ×2 (08:46→15:02)
[2016-06-18 09:00] VITALS: BP 90/66
[2016-06-18] MEDS: DILTIAZEM HCL CD 120 MG PO SCH (09:00)
[2016-06-18] MEDS: LOSARTAN POTASSIUM 50 MG TABLET PO SCH (09:00)
[2016-06-18] MEDS: METOPROLOL SUCCINATE 25 MG TAB.SR.24H PO SCH (09:00)
--- NOTE | 2016-06-18 09:23 | NUR ---
WOUND CARE CONSULT: PATIENT SEEN AND SKIN ASSESSMENT DONE. PATIENT INCONTINENT, UNABLE TO TURN AND REPOSITION SELF IN BED, ROCÍO 10, AMANDA ISOFLEX ALEX BED ORDERED BY NURSING STAFF. SEE TODAY'S SKIN ASSESSMENT IN PCS ALONG WITH RECOMMENDATIONS DISCUSSED WITH NURSING STAFF INCLUDING MOISTURE AND PRESSURE PREVENTION MEASURES. MD IN AGREEMENT WITH PLAN OF CARE. Addendum: 06/18/16 at 0924 by ESCOBAR SAINZ WNDNU Amended: Links added.
[2016-06-18] MEDS ORDERED: NEOMY SULF/BACITRAC ZN/POLY 15 GM TUBE TP SCH (09:30)
[2016-06-18] MEDS ORDERED: HYDROGEL DRESSING 90 GM TUBE TP SCH (09:30)
[2016-06-18] MEDS: FLUTICASONE/SALMETEROL DISKUS IH SCH (09:31)
[2016-06-18] MEDS: LIOTHYRONINE SODIUM (5 MCG/TA 5 MCG TABLET PO SCH (09:32)
[2016-06-18] MEDS: LEVOTHYROXINE SODIUM 75 MCG TABLET PO SCH (09:33)
[2016-06-18] MEDS: PANTOPRAZOLE 40 MG TABLET.DR PO SCH (09:33)
[2016-06-18] MEDS: predniSONE 10 MG TABLET PO SCH (09:33)
[2016-06-18] MEDS: DIGOXIN 0.125 MG TABLET PO SCH (09:33)
[2016-06-18] MEDS: ALLOPURINOL 100 MG TABLET PO SCH (09:34)
[2016-06-18 10:17] LABS: BASOPHILS % (AUTO) 0.1 % (0.0-2.0); HEMATOCRIT 32 % (33-45); HEMOGLOBIN 10.2 g/dL (11.5-14.8); LYMPHOCYTES # (AUTO) 0.8 /CMM (0.8-4.8); LYMPHOCYTES % (AUTO) 4.1 % (20.0-44.0); MEAN CORPUSCULAR HEMOGLOBIN 32 PG (26.0-33.0); MEAN CORPUSCULAR HGB CONC 32 g/dl (31.0-36.0); MEAN CORPUSCULAR VOLUME 99 fL (82-100); MONOCYTES # (AUTO) 0.4 /CMM (0.1-1.30); NEUTROPHILS # (AUTO) 18.6 /CMM (1.8-8.9); NEUTROPHILS % (AUTO) 93.8 % (43.0-81.0); PLATELET COUNT (AUTO) 219 /CMM (150-450); RED BLOOD CELL COUNT(AUTO) 3.19 MIL/uL (4.0-5.2); WHITE BLOOD COUNT (AUTO) 19.8 K/uL (4.3-11.0)
[2016-06-18 10:31] LABS: ALBUMIN 1.9 g/dL (3.4-5.0); BILIRUBIN,TOTAL 0.6 mg/dL (0.2-1.0); CALCIUM, SERUM 7.6 mg/dL (8.5-10.1); CREATININE 1.1 mg/dL (0.6-1.3); MAGNESIUM 1.7 mg/dL (1.8-2.4); PHOSPHORUS 2.6 mg/dL (2.5-4.9); POTASSIUM 3.5 mmol/L (3.5-5.1)
--- NOTE | 2016-06-18 11:39 | NUR ---
MS BERNARD NOTES PATIENT COMPLAINING OF GENERALIZED ACHING PAIN. INFORMED DR SCHRADER TO GAVE A VERBAL ORDER FOR GABAPENTIN 100MG TID. ORDERS PLACED AND CARRIED OUT. Addendum: 06/18/16 at 1253 by FOZIA HANEY RN DISREGARD. DOCUMENTED ON WRONG PATIENT
--- NOTE | 2016-06-18 15:26 | NUR ---
MS MACHINE REBUILDER NOTE DISCHARGE INSTRUCTIONS GIVEN TO PATIENT AND FAMILY AND THEY ARE ABLE TO UNDERSTAND. ALL PAPERWORK SIGNED AND BELONGINGS ACCOUNTED FOR. VITAL SIGNS CHECKED AND RECORDED. PICTURES OF SKIN ALL TAKEN LESS THAN 24 HOURS AGO, NO NEW CHANGES. DRESSINGS ALL CHANGED THIS MORNING. NO SOB OR DISTRESS NOTED AT THIS TIME. PATIENT ONLY REPORTS PAIN ON MOVEMENT. PATIENT IS BEING TRANSFERRED TO [facility] PER THE FAMILY REQUEST. REPORT CALLED TO JOANA MCDERMOTT. PATIENT LEFT IN STABLE CONDITION, VIA RSAMREEN, ACCOMPANIED BY TWO METALIZING SUPERVISOR.
[2016-06-20] MEDS ORDERED: EPOETIN ALFA (20,000 UNIT) 20,000 UNIT/ML VIAL SQ SCH (15:00)
== END 2016-06-18 15:25 | disposition short-term general hospital (02) | DRG 871 ==
LOC: ER 10:15 → TELE 12:45 → MED 06-18 09:50
PROVIDERS: ADMIT Internal Medicine; ATTEND Internal Medicine
DX: A41.9 Sepsis, unspecified organism (principal); I21.4 Non-ST elevation (NSTEMI) myocardial infarction; G93.41 Metabolic encephalopathy; J69.0 Pneumonitis due to inhalation of food and vomit; J96.91 Respiratory failure, unspecified with hypoxia; D68.59 Other primary thrombophilia; E46 Unspecified protein-calorie malnutrition; E87.2 Acidosis; N39.0 Urinary tract infection, site not specified; E11.649 Type 2 diabetes mellitus with hypoglycemia without coma; I25.10 Atherosclerotic heart disease of native coronary artery without angina pectoris; I50.9 Heart failure, unspecified; E78.5 Hyperlipidemia, unspecified; I25.2 Old myocardial infarction; I48.91 Unspecified atrial fibrillation; E11.65 Type 2 diabetes mellitus with hyperglycemia; T68.XXXA Hypothermia, initial encounter; J40 Bronchitis, not specified as acute or chronic; I11.0 Hypertensive heart disease with heart failure; Z79.84 Long term (current) use of oral hypoglycemic drugs; T38.0X5A Adverse effect of glucocorticoids and synthetic analogues, initial encounter; S81.802A Unspecified open wound, left lower leg, initial encounter; S81.801A Unspecified open wound, right lower leg, initial encounter; X58.XXXA Exposure to other specified factors, initial encounter; Y93.9 Activity, unspecified; Y92.129 Unspecified place in nursing home as the place of occurrence of the external cause; Y99.9 Unspecified external cause status; S41.101A Unspecified open wound of right upper arm, initial encounter; S31.000A Unspecified open wound of lower back and pelvis without penetration into retroperitoneum, initial encounter; S71.002A Unspecified open wound, left hip, initial encounter; T14.8 Other injury of unspecified body region; R65.20 Severe sepsis without septic shock; Z91.81 History of falling
CPT/HCPCS: 36415; 71010-TC; 80048-TC; 80053-TC; 80061-TC; 80076-TC; 80162-TC; 81000-TC; 82962-TC; 83605-TC; 83690-TC; 83735-TC; 84100-TC; 84484-TC; 85025-TC; 85730-TC; 87040-TC; 87081-TC; 87086-TC; 94799-TC; 97001-TC; A4606; A6248; A6402; J2543; J3370; J3490; J7030; J7040; J7060; Z7610